=== PATIENT | male | born 1930 | race African-American/Black ===

== ENCOUNTER 2016-08-17 10:29 | Emergency (ER) | payer OTHER, BC ==
[2016-08-17] MEDS ORDERED: EPINEPHRINE INJ 1 MG/10 ML DISP.SYRIN ONE (10:58)
[2016-08-17] MEDS ORDERED: AMIODARONE HCL INJ 150 MG/3 ML VIAL IV ONE (10:58)
--- NOTE | 2016-08-17 10:58 | ER Document Report ---
ED Resuscitation - General Stated Complaint: CARDIAC ARREST Notes: This is an 86-year-old male with history of end-stage renal disease he is normally on Monday, Monday, Monday dialysis somewhat subpatellar general this morning and fell, striking his head followed by loss a consciousness. He did not regain consciousness and then went into respiratory arrest. He was intubated by EMS. During transport to the hospital, he lost pulses and CPR was begun. Patient received calcium, bicarbonate, and epinephrine en route to the ER. He was shocked one time for V. fib. Upon arrival to the ER, he is receiving chest compressions continuously in the resuscitation efforts were continued. TRAVEL OUTSIDE OF THE [place] IN LAST 30 DAYS: No Past Medical History - General Information source: Emergency Med Personnel Cannot obtain history due to: Intubated - Social History Smoking Status: Unknown if Ever Smoked Family History: Reviewed & Not Pertinent - Past Medical History Cardiac Medical History: Reports: Hx Coronary Artery Disease, Hx Heart Attack Review of Systems - Review of Systems -: Yes ROS unobtainable due to patient's medical condition Physical Exam - General Notes: Unresponsive, intubated, pupils fixed - HEENT Head: Atraumatic, Other - No lacerations or hematomas Pupils: Fixed Neck: Other - JVD - Respiratory Respiratory status: Other - No spontaneous respirations, patient intubated Chest status: No: Chest mass, Ecchymosis Breath sounds: Normal, Other - Equal breath sounds bilaterally Chest palpation: No: Flail segment, Subcutaneous emphysema - Abdominal Distension: Distended - Extremities General upper extremity: Normal inspection General lower extremity: Normal inspection - Neurological Neuro grossly intact: No - GCS 3 - Skin Skin Temperature: Warm Skin Moisture: Dry Skin Color: Normal Course - Re-evaluation Re-evalutation: 08/17/16 11:51 The patient was receiving chest compressions upon arrival to trauma bay 1. Compressions were maintained continuously except for pulse checks and defibrillation. A total of 4 epinephrine were given. Patient was also given 300 mg of amiodarone. He was defibrillated several times unsuccessfully. Bedside ultrasound revealed no cardiac wall motion. More than 30 minutes of CPR was given without success. The code was called at 1050. I updated the and family member of his current condition. 08/17/16 20:03 Discharge - Discharge Clinical Impression: Cardiac arrest Disposition:
== END 2016-08-17 12:54 | disposition expired ==
LOC: ER 10:29
DX: I46.9 Cardiac arrest, cause unspecified (principal); N18.6 End stage renal disease; I25.10 Atherosclerotic heart disease of native coronary artery without angina pectoris; W01.10XA Fall on same level from slipping, tripping and stumbling with subsequent striking against unspecified object, initial encounter; I25.2 Old myocardial infarction; Z99.2 Dependence on renal dialysis
CPT/HCPCS: 99285; 92950; 96374; J0171; J0282